=== PATIENT | female | born 1980 | race Caucasian/White ===

== ENCOUNTER → 2019-03-22 | Day surgery (SDC) | payer BC ==
--- NOTE | 2019-03-21 15:17 | Diagnostic Imaging Report ---
EXAMINATION: CHEST 2 VIEWS INDICATION: Pre-operative COMPARISON: None FINDINGS: TUBES and LINES: None. LUNGS: The lung volumes are normal. No focal consolidation or pulmonary edema. PLEURA: No pleural effusion or pneumothorax. HEART AND MEDIASTINUM: The cardiomediastinal silhouette is normal in size and contour. BONES AND SOFT TISSUES: No acute fracture or dislocation. UPPER ABDOMEN: No free air under the diaphragm. IMPRESSION: No focal pneumonia or pulmonary edema. Signed by: Jose Eduardo Dewey MD on 03/21/2019 3:13 PM
[~2019-03-22] MED LIST: ACETAMINOPHEN 1000 MG/100 ML IV ONE; BUPIVACAINE 0.25%/EPI 30ML SDV INJ ONE; DEXAMETHASONE SOD PHOS INJ 4 MG/ML VIAL ONE; FENTANYL CITRATE/PF 100MCG/2 ML INJ ONE; HYDROMORPHONE 2MG/ML 2 MG/ML ML ONE; LIDOCAINE HCL 2% JELLY 5 ML TUBE ONE; LIDOCAINE HCL 2% LOCAL INJ 5 ML SDV VIAL INJ ONE; MEPERIDINE HCL INJ 25 MG/ML VIAL ONE; MIDAZOLAM HCL 2 MG/2 ML VIAL ONE; ONDANSETRON HCL INJ 2MG/ML 2ML 2 MG/ML VIAL ONE; PROPOFOL IV EMULSION 10 MG/ML 20 ML VIAL ONE; ROCURONIUM BROMIDE 10 MG/ML 5ML VIAL ONE; SEVOFLURANE INHAL SOLN 250 ML PEN BTL ONE; ZANTAC150 MG PO; ZYRTEC10 MG PO
--- OUTSIDE RECORDS SUMMARY | 2019-03-22 08:40 | XMS REPORT ---
[facility] Address Unknown Phone Unavailable Care Team Providers Care Dough Catcher Name Role Phone Lisa PEREIRA Unavailable Unavailable Payers Payer Name Policy Type Policy Number Effective Date Expiration Date Problems This patient has no known problems. Allergies, Adverse Reactions, Alerts Allergy Name Allergy Type Status Severity Reaction(s) Onset Date Inactive Date Treating Clinician Comments vancomycin DA Active MO 2019-03-17 00:00:00 Medications This patient has no known medications. Results Test Description Test Time Test Comments Text Results Atomic Results Result Comments CHEST 2 VIEWS 2019-03-21 15:11:00 [place] [address] Patient Name: AUDREY TYLER MR #: [id number] : 1980 Age/Sex: 38/F Req #: [id number] Adm Physician: Ordered by: SANDY PEREIRA MD Report #: [id number] Location: OR Room/Bed: Procedure: [id number] DX/CHEST 2 VIEWS Exam Date: 03/21/19 Exam Time: 1450 REPORT STATUS: Signed EXAMINATION: CHEST 2 VIEWS INDICATION: Pre-operative COMPARISON: None FINDINGS: TUBES and LINES: None. LUNGS: The lung volumes are normal. No focal consolidation or pulmonary edema. PLEURA: No pleural effusion or pneumothorax. HEART AND MEDIASTINUM: The cardiomediastinal silhouette is normal in size and contour. BONES AND SOFT TISSUES: No acute fracture or dislocation. UPPER ABDOMEN: No free air under the diaphragm. IMPRESSION: No focal pneumonia or pulmonary edema. Signed by: Amberly Ying MD on 03/21/2019 3:13 PM Dictated By: AMBERLY YING MD 12 Transcribed By: NEO on 03/21/191512 COPY TO: SANDY PEREIRA MD - US TRANSVAGINAL NON OB 2019-03-18 01:44:00 Name: AUDREY TYLER [facility] : 1980 Age/S: 38 / F [address] [place] [address] Unit #: [id number] Loc: [place] [address] Phys: Bethany Nassar STATION ATTENDANT Acct: [id number] Dis Date: Status: REG ER PHONE #: [phone] Exam Date: 03/18/2019 0126 FAX #: [phone] Reason: LLQ pain r/o cyst/ torsion EXAMS: CPT CODE: [id number] [place] [address] EXAM: US, US PELVIS COMPLETE: 03/18/2019, 0058 hours EXAM:US, US PREG UT TRANSVAGINAL: 03/18/2019, 0058 hours HISTORY: Abdominal pain. Pain radiates to the back. Left lower quadrant pain. Evaluate cyst/ovarian torsion.. TECHNIQUE: sonographic evaluation is performed of the pelvis via transabdominal and transvaginal approach using grayscale, color flow and Doppler imaging as appropriate. COMPARISON: CT dated 03/17/2019, 2242 hours Findings: Transabdominal pelvic ultrasound shows uterus to be anteverted. Uterus measures 5.7 x 3.0 x 3.9 cm. 3.5 mm. Endometrial stripe measures Endometrial stripe not well seen. Right ovary measures 2.6 x 1.8 x 2.3 cm. Left ovary is not visualized. For better visualization of endometrium and adnexa, endovaginal pelvic ultrasound is performed. Endovaginal pelvic ultrasound shows uterus to be anteverted. Uterus measures 5.7 x 3.5 x 3.5 cm. Endometrial stripe is 6.3 mm in thickness. A 0.8 x 0.5 x 1.0 cm hypoechoic area in the posterior wall of the uterus may represent fibroid.. Right ovary: 2.1 x 1.5 x 2.3 cm Left ovary: 3.0 x 2.0 x 2.6 cm. 8 mm dominant follicle seen in the left ovary. There is normal flow to the both ovaries with no evidence for ovarian torsion. No free fluid seen in the pelvis IMPRESSION: 1. Small uterine fibroid. 2. No evidence for ovarian torsion. SL:JSYED-H PAGE 1 Signed Report (CONTINUED) Name: AUDREY TYLER : 1980 Age/S: 38 / F [address] [place] [address] Unit #: [id number] Loc: [facility] [place] [address] Phys: Bethany Nassar NP Acct: [id number] Dis Date: Status: REG ER PHONE #: [phone] Exam Date: 03/18/2019 0126 FAX #: [phone] Reason: LLQ pain r/o cyst/ torsion EXAMS: CPT CODE: [id number] [place] [address] <Continued> at 0144 Reported and signed by: Joe Donald M.D. CC: Bethany Nassar NP; Phillip Sr MD Technologist: Maira Onofre RDMS(Trice)(OB) Trnscb Date/Time: 03/18/2019 (014) [email or web address] Orig Print D/T: S: 03/18/2019 (0147) Probe: [id number] PAGE 2 Signed Report - US PELVIS COMPLETE 2019-03-18 01:44:00 Name: AUDREY TYLER : 1980 Age/S: 38 / F [address] [place] [address] Unit #: [id number] Loc: [place] [address] Phys: Bethany Nassar NP Acct: [id number] Dis Date: Status: REG ER PHONE #: [phone] Exam Date: 03/18/2019125 FAX #: [phone] Reason: LLQ pain r/o cyst/ torsion EXAMS: CPT CODE: [id number] US PELVIS COMPLETE 19823 EXAM: US, US PELVIS COMPLETE: 03/18/2019, 0058 hours EXAM:US, US PREG UT TRANSVAGINAL: 03/18/2019, 0058 hours HISTORY: Abdominal pain. Pain radiates to the back. Left lower quadrant pain. Evaluate cyst/ovarian torsion.. TECHNIQUE: sonographic evaluation is performed of the pelvis via transabdominal and transvaginal approach using grayscale, color flow and Doppler imaging as appropriate. COMPARISON: CT dated 03/17/2019, 2242 hours Findings: Transabdominal pelvic ultrasound shows uterus to be anteverted. Uterus measures 5.7 x 3.0 x 3.9 cm. 3.5 mm. Endometrial stripe measures Endometrial stripe not well seen. Right ovary measures 2.6 x 1.8 x 2.3 cm. Left ovary is not visualized. For better visualization of endometrium and adnexa, endovaginal pelvic ultrasound is performed. Endovaginal pelvic ultrasound shows uterus to be anteverted. Uterus measures 5.7 x 3.5 x 3.5 cm. Endometrial stripe is 6.3 mm in thickness. A 0.8 x 0.5 x 1.0 cm hypoechoic area in the posterior wall of the uterus may represent fibroid.. Right ovary: 2.1 x 1.5 x 2.3 cm Left ovary: 3.0 x 2.0 x 2.6 cm. 8 mm dominant follicle seen in the left ovary. There is normal flow to the both ovaries with no evidence for ovarian torsion. No free fluid seen in the pelvis IMPRESSION: 1. Small uterine fibroid. 2. No evidence for ovarian torsion. SL:JSDAFNE PAGE 1 Signed Report (CONTINUED) Name: AUDREY TYLER [facility] : 1980 Age/S: 38 / F [address] [place] [address] Unit #: [id number] Loc: [place] [address] Phys: PutnamJosiane maiern STATION ATTENDANT Acct: [id number] Dis Date: Status: REG ER PHONE #: [phone] Exam Date: 03/18/2019 0126 FAX #: [phone] Reason: LLQ pain r/o cyst/ torsion EXAMS: CPT CODE: [id number] US PELVIS COMPLETE 87711 <Continued> at 0144 Reported and signed by: Joe Donald M.D. CC: Bethany Nassar STATION ATTENDANT; Phillip Sr MD Technologist: Maira Onofre RDMS(Trice)(OB) Trnscb Date/Time: 03/18/2019 (014) [email or web address] Orig Print D/T: S: 03/18/2019 (0147) Probe: PAGE 2 Signed Report - CT ABD PELVIS W/CONT 2019-03-17 23:08:00 Name: AUDREY TYLER [facility] : 1980 Age/S: 38 / F [address] [place] [address] Unit #: [id number] Loc: [place] [address] Phys: Phillip Sr MD Acct: [id number] Dis Date: Status: REG ER PHONE #: [phone] Exam Date: 03/17/20192241 FAX #: [phone] Reason: LLQ pain EXAMS: CPT CODE: [id number] CT ABD PELVIS W/CONT 49279 PROCEDURE: CT ABDOMEN AND PELVIS WITH CONTRAST INDICATION: Left upper quadrant abdominal pain COMPARISON: None. TECHNIQUE: Helical imaging was performed diaphragm through the symphysis with multiplanar reconstructions. IV CONTRAST: 100 mL Isovue-300. GI CONTRAST: 10 mL Gastrografin diluted in water. CT imaging performed at this location utilizes radiation dose optimization techniques which include one or more of the following: -Automated exposure control -Adjustment of the mA and/or kV according to patient size - Use of iterative reconstruction technique CT Radiation Dose DLP 342 mGy-cm FINDINGS: LOWER CHEST: The lung bases are clear. Calcified granuloma noted in the medial right lung base. LIVER: Normal. GALLBLADDER: There are small cholesterol type gallstones. No gallbladder wall thickening or pericholecystic fluid. SPLEEN: Normal. PANCREAS: Normal. ADRENALS: Normal. KIDNEYS: Normal. BOWEL: The stomach, small bowel and colon are unremarkable. APPENDIX: Normal. PERITONEUM: No free intraperitoneal fluid or air. RETROPERITONEUM: No adenopathy. The aorta is normal. PELVIS: No pelvic mass. The urinary bladder is normal. MUSCULOSKELETAL: No acute abnormality. PAGE 1 Signed Report (CONTINUED) Name: AUDREY TYLER [facility] Amandeep Nunez : 1980 Age/S: 38 / F [address] [place] [address] Blvd Unit #: [id number] Loc: [place] [address] Phys: Phillip Sr MD Acct: [id number] Dis Date: Status: REG ER PHONE #: [phone] Exam Date: 03/17/2019 2242 FAX #: [phone] Reason: LLQ pain EXAMS: CPT CODE: [id number] CT ABD PELVIS W/CONT 65384 <Continued> IMPRESSION: 1. Cholelithiasis. No CT evidence for cholecystitis. No intra or extrahepatic biliary ductal dilatation. 2. Otherwise, unremarkable exam. SL:01 at 2308 Reported and signed by: Ever Gramajo M.D. CC: Phillip Sr MD Technologist:RT Kenia(R) CTDI: DLP: Trnscb Date/Time: 03/17/2019 (2307) tGISELA Orig Print D/T: S: 03/17/2019 (2311) PAGE 2 Signed Report URINALYSIS COMPLETE 2019-03-17 22:52:00 UA COLOR (test code=COLU) YELLOW YEL/STRAW UA APPEARANCE (test code=APPU) SL CLOUDY CLEAR UA GLUCOSE DIPSTICK (test code=DGLUU) NEGATIVE NEGATIVE UA BILIRUBIN DIPSTICK (test code=BILU) NEGATIVE NEGATIVE UA KETONE DIPSTICK (test code=KETU) NEGATIVE NEGATIVE UA SPECIFIC GRAVITY (test code=SGU) 1.027 1.005-1.030 UA BLOOD DIPSTICK (test code=CAROL) 1+ NEGATIVE UA PH DIPSTICK (test code=MELITA) 5.0 5.0-7.0 UA PROTEIN DIPSTICK (test code=PROU) 1+ NEGATIVE UA UROBILINIOGEN DIPSTICK (test code=URO) 0.2 mg/dL 0.2-1.0 UA NITRITE DIPSTICK (test code=JAN) NEGATIVE NEGATIVE UA LEUKOCYTE ESTERASE DIPSTICK (test code=LEUU) NEGATIVE NEGATIVE UA WBC (test code=WBCU) 4-9 WBC/HPF 0-3 UA RBC (test code=RBCU) 4-10 RBC/HPF 0-3 UA BACTERIA (test code=BACU) TRACE /HPF NONE SEEN UA SQUAMOUS CELLS (test code=SQU) 6-10 /HPF NONE SEEN UA MUCUS (test code=MUCU) 4+ /LPF NONE SEEN COMMENTS: Clean CatchCOMPREHENSIVE METABOLIC [id number] 22:15:00* Test Item Value Reference Range Comments SODIUM (test code=NA) 140 mEq/L 134-147 POTASSIUM (test code=K) 4.6 mEq/L 3.4-5.0 CHLORIDE (test code=CL) 106 mEq/L 100-108 CARBON DIOXIDE (test code=CO2) 27 mEq/L 21-33 ANION GAP (test code=GAP) 12 0-20 GLUCOSE (test code=GLU) 96 mg/dL 70-110 BLOOD UREA NITROGEN (test code=BUN) 19 mg/dL 7-18 GLOMERULAR FILTRATION RATE (test code=GFR) 79.9 105-110 Units of measure=ml/min/1.73 m2 CREATININE (test code=CREAT) 0.8 mg/dL 0.6-1.3 TOTAL PROTEIN (test code=PROT) 7.2 g/dL 6.4-8.2 ALBUMIN (test code=ALB) 4.00 g/dL 3.4-5.0 CALCIUM (test code=CA) 8.6 mg/dL 8.0-10.5 BILIRUBIN TOTAL (test code=BILT) 0.10 mg/dL 0.0-1.0 SGOT/AST (test code=AST) 17 IUnit/L 15-37 SGPT/ALT (test code=ALT) 25 IUnit/L 15-65 ALKALINE PHOSPHATASE TOTAL (test code=ALKP) 104 IUnit/L 20-125 [id number] 22:15:00* Test Item Value Reference Range Comments LIPASE (test code=LIP) 180 IUnit/L 73-393 HCG SERUM [id number] 22:15:00* Test Item Value Reference Range Comments HCG SERUM QUAL (test code=HCGQL) SERUM NEGATIVE NEGATIVE COMPREHENSIVE METABOLIC [id number] 22:09:00* Test Item Value Reference Range Comments SODIUM (test code=NA) mEq/L 134-147 POTASSIUM (test code=K) mEq/L 3.4-5.0 CHLORIDE (test code=CL) mEq/L 100-108 CARBON DIOXIDE (test code=CO2) mEq/L 21-33 ANION GAP (test code=GAP) 0-20 GLUCOSE (test code=GLU) mg/dL 70-110 BLOOD UREA NITROGEN (test code=BUN) mg/dL 7-18 GLOMERULAR FILTRATION RATE (test code=GFR) 105-110 CREATININE (test code=CREAT) mg/dL 0.6-1.3 TOTAL PROTEIN (test code=PROT) g/dL 6.4-8.2 ALBUMIN (test code=ALB) g/dL 3.4-5.0 CALCIUM (test code=CA) mg/dL 8.0-10.5 BILIRUBIN TOTAL (test code=BILT) mg/dL 0.0-1.0 SGOT/AST (test code=AST) IUnit/L 15-37 SGPT/ALT (test code=ALT) IUnit/L 15-65 ALKALINE PHOSPHATASE TOTAL (test code=ALKP) IUnit/L 20-125 [id number] 22:09:00* Test Item Value Reference Range Comments LIPASE (test code=LIP) IUnit/L 73-393 HCG SERUM [id number] 22:09:00* Test Item Value Reference Range Comments HCG SERUM QUAL (test code=HCGQL) SERUM NEGATIVE NEGATIVE COMPREHENSIVE METABOLIC [id number] 22:09:00* Test Item Value Reference Range Comments SODIUM (test code=NA) 140 mEq/L 134-147 POTASSIUM (test code=K) 4.6 mEq/L 3.4-5.0 CHLORIDE (test code=CL) 106 mEq/L 100-108 CARBON DIOXIDE (test code=CO2) 27 mEq/L 21-33 ANION GAP (test code=GAP) 12 0-20 GLUCOSE (test code=GLU) 96 mg/dL 70-110 BLOOD UREA NITROGEN (test code=BUN) 19 mg/dL 7-18 GLOMERULAR FILTRATION RATE (test code=GFR) 79.9 105-110 Units of measure=ml/min/1.73 m2 CREATININE (test code=CREAT) 0.8 mg/dL 0.6-1.3 TOTAL PROTEIN (test code=PROT) g/dL 6.4-8.2 ALBUMIN (test code=ALB) 4.00 g/dL 3.4-5.0 CALCIUM (test code=CA) 8.6 mg/dL 8.0-10.5 BILIRUBIN TOTAL (test code=BILT) mg/dL 0.0-1.0 SGOT/AST (test code=AST) 17 IUnit/L 15-37 SGPT/ALT (test code=ALT) 25 IUnit/L 15-65 ALKALINE PHOSPHATASE TOTAL (test code=ALKP) IUnit/L 20-125 [id number] 22:09:00* Test Item Value Reference Range Comments LIPASE (test code=LIP) 180 IUnit/L 73-393 HCG SERUM [id number] 22:09:00* Test Item Value Reference Range Comments HCG SERUM QUAL (test code=HCGQL) SERUM NEGATIVE NEGATIVE CBC W/AUTO [id number] 21:58:00* Test Item Value Reference Range Comments WHITE BLOOD CELL (test code=WBC) 8.36 x10 3/uL 4.5-11.0 RED BLOOD CELL (test code=RBC) 5.32 x10 6/uL 3.54-5.02 HEMOGLOBIN (test code=HGB) 16.4 g/dL 11.0-15.0 HEMATOCRIT (test code=HCT) 47.8 % 33.0-45.0 MEAN CELL VOLUME (test code=MCV) 89.8 fL 81.0-99.0 MEAN CELL HGB (test code=MCH) 30.8 pg 27.0-33.0 MEAN CELL HGB CONCETRATION (test code=MCHC) 34.3 g/dL 33.0-37.0 RED CELL DISTRIBUTION WIDTH CV (test code=RDW) 12.1 % 11.5-14.5 RED CELL DISTRIBUTION WIDTH SD (test code=RDW-SD) 39.8 fL 37.0-54.0 PLATELET COUNT (test code=PLT) 318 x10 3/uL 150-400 MEAN PLATELET VOLUME (test code=MPV) 9.4 fL 7.0-9.0 NEUTROPHIL % (test code=NT%) 48.6 % 56.0-77.0 IMMATURE GRANULOCYTE % (test code=IG%) 0.4 % 0.0-2.0 LYMPHOCYTE % (test code=LY%) 40.7 % 14.0-32.0 MONOCYTE % (test code=MO%) 8.1 % 4.8-9.0 EOSINOPHIL % (test code=EO%) 1.8 % 0.3-3.7 BASOPHIL % (test code=BA%) 0.4 % 0.0-2.0 NUCLEATED RBC % (test code=NRBC%) 0.0 % 0-0 NEUTROPHIL # (test code=NT#) 4.07 x10 3/uL 2.0-7.6 IMMATURE GRANULOCYTE # (test code=IG#) 0.03 x10 3/uL 0.00-0.03 LYMPHOCYTE # (test code=LY#) 3.40 x10 3/uL 1.0-3.8 MONOCYTE # (test code=MO#) 0.68 x10 3/uL 0.1-0.8 EOSINOPHIL # (test code=EO#) 0.15 x10 3/uL 0.0-0.2 BASOPHIL # (test code=BA#) 0.03 x10 3/uL 0.0-0.2 NUCLEATED RBC # (test code=NRBC#) 0.00 x10 3/uL 0.0-0.1 MANUAL DIFF REQUIRED (test code=MDIFF) NO
[2019-03-22 15:35] VITALS: BP 129/87
--- NOTE | 2019-03-22 20:31 | Operative Report ---
DATE OF PROCEDURE: 03/22/2019 SURGEON: Drake Mitchell MD PREOPERATIVE DIAGNOSES: Cholecystitis, cholelithiasis and heartburn, rule out peptic ulcer disease. POSTOPERATIVE DIAGNOSES: Cholecystitis, cholelithiasis, gastritis with multiple small gastric ulcers and duodenitis with two large ulcers of the postbulbar region. OPERATION PERFORMED: Laparoscopic cholecystectomy and EGD. OUTPATIENT PSYCHIATRIST: Dr. Angelo Mitchell and MICHELLE Pro. ANESTHESIA: General. COMPLICATIONS: None. ESTIMATED BLOOD LOSS: Minimal. DESCRIPTION OF PROCEDURE: With the patient lying in bed in the supine position under good general endotracheal anesthesia, the abdomen was prepped with Betadine solution and draped in the usual manner. A Veress needle was introduced into the right upper quadrant and pneumoperitoneum was established without any difficulty. A 5 mm trocar was placed in the right upper quadrant and a 5 mm videolaparoscope was placed into the intraabdominal cavity. Videolaparoscopy at this point revealed some adhesions to the subumbilical lower abdominal area from the patient's previous laparotomy. Another 5 mm trocar was then placed in the right subcostal region and the adhesions to the anterior abdominal wall in the subumbilical region were taken down. After this was done, an 11 mm trocar was placed into the umbilicus and a 10 mm videolaparoscope was placed into the intraabdominal cavity. Another 5 mm trocar was placed in the right subcostal region. Laparoscopy revealed the gallbladder to contain multiple stones and there were adhesions to the gallbladder in the lower half. This was slowly and carefully taken down. The peritoneum overlying the neck of the gallbladder was then opened and the cystic duct was identified. The cystic duct was then followed to its junction with the common duct. The cystic duct was then circumferentially dissected away from the common duct, doubly clipped and divided. The cystic artery was similarly doubly clipped and divided. The gallbladder was then slowly and carefully taken off the liver bed using the cautery scissors and perfect hemostasis was ascertained. The gallbladder was grasped through the umbilical port and removed without any difficulty. Videolaparoscopy was then again carried out. The liver bed was found to be perfectly dry. All the excess fluid was aspirated. The pneumoperitoneum was evacuated and all the trocars were removed under direct vision. The midline fascia at the umbilicus was then closed with a nscbue-xo-ijoah of 0 Vicryl. All layers were infiltrated on the way out with solution of 0.25% Marcaine. Subcutaneous tissue was approximated with 3-0 Vicryl and the skin was closed with subcuticular 5-0 Vicryl. Benzoin, Steri-Strips, and Band-Aids were applied. The sponge, lap, and needle counts were correct. The flexible Olympus gastroscope was then introduced, and slowly and carefully advanced down the back of the throat into the esophagus. The entire length of the esophagus was inspected and was found to be within normal limits. The esophagogastric junction was then entered and the stomach was insufflated. The upper 2/3rd of the stomach were found to be within normal limits. However, in the antrum, there were multiple small ulcerations at different stages of healing. There was also some signs of gastritis in the distal antrum. The pylorus was then entered and the duodenum was inspected. There was diffuse duodenitis with two large ulcerations just in the postbulbar region, which had stigmata of some recent inflammatory changes and bleeding. No other abnormalities were identified. The scope was then slowly and carefully withdrawn. The patient tolerated both procedures well and returned to the recovery room in stable condition. MD ZO Marte/KRISTIAN /[id number]
== END | disposition home or self-care (01) ==
LOC: OR 08:37
PROVIDERS: ATTEND Surgery
DX: K80.10 Calculus of gallbladder with chronic cholecystitis without obstruction (principal); K29.70 Gastritis, unspecified, without bleeding; K25.9 Gastric ulcer, unspecified as acute or chronic, without hemorrhage or perforation; K29.80 Duodenitis without bleeding; K82.8 Other specified diseases of gallbladder; K21.9 Gastro-esophageal reflux disease without esophagitis; K58.9 Irritable bowel syndrome, unspecified; F41.9 Anxiety disorder, unspecified; Z88.1 Allergy status to other antibiotic agents; Z01.810 Encounter for preprocedural cardiovascular examination; Z01.818 Encounter for other preprocedural examination
CPT/HCPCS: 43235; 47562; 71046; 81025; 88304; 93005; C1766; J0131; J1100; J1170; J2001 ×2; J2175; J2250; J2405; J2704; J3010